=== PATIENT | female | born 1965 | race Caucasian/White ===

== ENCOUNTER → 2016-08-12 | Outpatient (CLI) | payer BC ==
--- NOTE | 2016-08-12 14:45 | DIAGNOSTIC IMAGING REPORT ---
RIGHT INJ MAJOR JN SHLDR,HIP,KNEE CLINICAL HISTORY: DJD RIGHT HIP Rightpain COMPARISON STUDY: None FLUOROSCOPY TIME: 12 seconds. FINDINGS: Following description of procedure and informed consent, fluoroscopic assistance was provided to place a 25-gauge needle to the right hip joint space. Test injection confirmed its intra-articular location. This is followed by a combination of Xylocaine, bupivacaine, and betamethasone. There were no complications. IMPRESSION: Successful therapeutic right hip injection Electronically signed by: Yordy Leal M.D. 08/12/2016 2:43 PM Dictated Date/Time: 08/12/2016 2:42 PM
== END | disposition home or self-care (01) ==
LOC: C.RADBC 13:57
PROVIDERS: ATTEND Orthopaedic Surgery
DX: M16.11 Unilateral primary osteoarthritis, right hip (principal)

== ENCOUNTER → 2016-11-20 | Outpatient (CLI) | payer BC ==
--- NOTE | 2016-11-20 14:15 | Discharge Instructions ---
Discharge Instructions Procedure Procedure Date: Nov 20, 2016. Reason for visit: Rt Hip Djd,Pain. Discharge Discharge Date: Nov 20, 2016. Discharge Diagnosis: Same Instructions Activity Recommendations: No limitations Return to School/Work: no limitations Recommended Home Diet: Resume Previous Diet Provider Instructions: ACTIVITY RECOMMENDATIONS: * Rest today. * Resume regular activity in one day. MEDICATIONS: * May take Tylenol or Ibuprofen as needed for pain. DIET: * Resume previous diet. SPECIAL CARE INSTRUCTIONS: Call your doctor if: * Temperature above 101 degrees F. * Pain not relieved by pain medicine ordered. * Increased drainage or redness from incision. * Notify your doctor with any questions or concerns. Call your doctor or go to the nearest Emergency Department if you experience: * Increased chest pain or shortness of breath. FOLLOW UP VISIT: Follow-up with Referring Physician as scheduled. Annette Bruce Recommendations: Call your doctor if: * Temperature above 101 degrees * Pain not relieved by pain medicine ordered * There is increased drainage or redness from any incision * You have any unanswered questions or concerns. Your Doctors Instructions noted above were prepared by provider Kingsley Carrasquillo. Patient Signature Section: Patient Instructions Signature Page Lisbethyuli Cuevas Patient (or Guardian) Signature/Date: I have read and understand the instructions given to me by my caregivers. Caregiver/RN/Doctor Signature/Date: The above-named patient and/or guardian has received patient instructions on this date. + Original Patient Signature Page (only) stays with chart. Please make copy for patient.
--- NOTE | 2016-11-20 15:33 | DIAGNOSTIC IMAGING REPORT ---
RIGHT INJ MAJOR JNT SHLDR,HIP,KNEE FLUOROSCOPY TIME: 24 seconds HISTORY: Right hip pain.. PROCEDURE: After obtaining written informed consent, the patient was placed supine on the fluoroscopy table. A suitable site for needle insertion was marked using fluoroscopic guidance. The right hip was prepped and draped in the usual sterile fashion. 1% lidocaine was used for skin, subcutaneous and deep soft tissue anesthesia. Under intermittent fluoroscopic guidance, a 22 gauge x 3.5 inch spinal needle was inserted into the right femoral acetabular joint. 2 cc of Optiray 300 was injected to confirm the intra-articular location. This is followed by a mixture of 5cc of 0.5% bupivacaine and 2 cc of betamethasone at the request of the referring physician. The needle was then removed. There were no apparent complications. IMPRESSION: Fluoroscopic-guided right hip steroid injection without immediate complication. The above report was generated using voice recognition software. It may contain grammatical, syntax or spelling errors. Electronically signed by: Jorge Carrasquillo M.D. 11/20/2016 3:31 PM Dictated Date/Time: 11/20/2016 3:30 PM
== END | disposition home or self-care (01) ==
LOC: C.RADBC 13:30
PROVIDERS: ATTEND Orthopaedic Surgery Orthopaedic Surgery of the Spine
DX: M16.11 Unilateral primary osteoarthritis, right hip (principal); M25.551 Pain in right hip

== ENCOUNTER 2019-10-07 08:10 | Observation (INO) ==
--- NOTE | 2019-09-23 15:44 | PAT Medication Instructions ---
Medication Instructions Date of Service September 23, 2019 Home Medications Medication Instructions Recorded nabumetone 500 mg tablet 500 mg PO BID #60 tab 11/26/18 solifenacin 10 mg tablet 10 mg PO DAILY #90 tab 04/13/19 levothyroxine 25 mcg tablet 25 mcg PO DAILY #90 tab 04/29/19 lisinopril 5 mg tablet 5 mg PO DAILY #90 tab 05/04/19 meloxicam 15 mg tablet 15 mg PO DAILY #90 tab 05/04/19 diclofenac sodium 75 mg 75 mg PO BID #60 tab 08/09/19 tablet,delayed release tramadol 50 mg tablet 50 mg PO Q8H PRN #30 tab 08/09/19 nabumetone 500 mg tablet 500 mg PO BID solifenacin 10 mg tablet 10 mg PO DAILY levothyroxine 25 mcg tablet 25 mcg PO DAILY lisinopril 5 mg tablet 5 mg PO DAILY meloxicam 15 mg tablet 15 mg PO DAILY diclofenac sodium 75 mg tablet,delayed release 75 mg PO BID tramadol 50 mg tablet 50 mg PO Q8H PRN ASK your surgeon for instructions nabumetone 500 mg tablet 500 mg PO BID meloxicam 15 mg tablet 15 mg PO DAILY diclofenac sodium 75 mg tablet,delayed release 75 mg PO BID DO NOT take the morning of surgery solifenacin 10 mg tablet 10 mg PO DAILY lisinopril 5 mg tablet 5 mg PO DAILY Take morning of surgery With a small sip of water, OTHERWISE NOTHING TO EAT OR DRINK AFTER MIDNIGHT: levothyroxine 25 mcg tablet 25 mcg PO DAILY tramadol 50 mg tablet 50 mg PO Q8H PRN (okay to take up to 4 hours prior to surgery if needed) Take evening before surgery tramadol 50 mg tablet 50 mg PO Q8H PRN (if needed) Other Notes If you have any questions please call us at [phone] or [phone] or [phone] or [phone]
--- NOTE | 2019-09-26 14:31 | Anesthesiology Consultation ---
Date of Service September 26, 2019 Assessment & Plan (1) Encounter for pre-operative examination: COVID Status: As of 09/25 assessment, patient denies travel to endemic area, known exposure/sick contacts, or symptoms of COVID19. Patient instructed to follow strict social distancing guidelines, wear a mask in public and avoid travel for 14 days prior to surgery. Preoperative COVID19 testing to be completed prior to surgery. Patient made aware to self-isolate as much as possible between COVID testing and surgery. *Possible difficult intubation 2/2 limited jaw ROM/TMJ. Patient aware plan for SAB. Chart Review Chart Review: Acceptable Risk for Surgery and Patient seen in Pre Admission Testing Teaching & Discussion Instructed NPO after midnight before surgery, except medications with 15 cc of water. Medication instructions provided according to the PAT guidelines. History Surgery Operation Date: 10/07/19 08:50 Proposed Procedures p Right Anterior Total Hip Arthroplasty - Jaocb Arora, Height/Weight Height: 5 ft 6 in Weight: 102.4 kg Allergies Allergy/AdvReac Type Severity Reaction Status Date / Time No Known Allergies Allergy Verified 09/19/19 15:33 Medications Home Medications Medication Instructions Recorded Confirmed Last Taken nabumetone 500 mg tablet 500 mg PO BID #60 tab 11/26/18 09/19/19 Unknown solifenacin 10 mg tablet 10 mg PO DAILY #90 tab 04/13/19 09/19/19 Unknown levothyroxine 25 mcg tablet 25 mcg PO DAILY #90 tab 04/29/19 09/19/19 Unknown lisinopril 5 mg tablet 5 mg PO DAILY #90 tab 05/04/19 09/19/19 Unknown meloxicam 15 mg tablet 15 mg PO DAILY #90 tab 05/04/19 09/19/19 Unknown diclofenac sodium 75 mg 75 mg PO BID #60 tab 08/09/19 09/19/19 Unknown tablet,delayed release tramadol 50 mg tablet 50 mg PO Q8H PRN #30 tab 08/09/19 09/19/19 Unknown Past Medical History Medical History Asthma no inhaler -> well controlled, occasional mild dry cough in allergy season. Cough also triggered by smells like cleaning products. Hypertension Hypothyroidism Obesity Osteoarthritis Prolapsed bladder following with PCP currently. Exercise / Class Metabolic Activity II 4-5 Yardwork/Stairs/Walk up hill (Denies CP or SOB with 1 FOS) Past Family History Family History Father Diabetes Colorectal cancer Hypertension Mother Hypertension Other No family history of adverse response to anesthesia Past Surgical History Surgical History (Updated 09/27/19 @ 15:36 by [facility]) History of bilateral tubal ligation History of cholecystectomy History of colonoscopy History of dilatation and curettage History of tonsillectomy Past Anesthesia History No Hx of Anesthesia Complications (other than PONV/MAYES) and No Family Hx of Anesthesia Complications History of PONV No Hx of Motion Sickness and History of PONV (with tubal ligation, also headache) Social History Smoking Status: Never smoker Do You Dip or Chew Tobacco: No Hx Alcohol Use: No Hx Substance Use: Yes Review of Systems Pt denies any recent chest pain, shortness of breath, palpitations, fever or URI. +chronic dry cough with asthma triggers Physical Exam Vital Signs BP: 144/91 (pt follows with PCP for HTN) P: 63bpm SPO2: 97% RA T: 98.3 F R: 16 ENMT Mouth: + TMJ abnormality and + restricted motion of mouth (2/2 TMJ); no dental restorations, no chipped teeth and no loose teeth Thyromental Distance: > or= 3.5 Finger Breadths (3.5) Mallampati Class: IV (difficult to view 2/2 TMJ/jaw extenstion restriction) Neck normal visual inspection; neck extension not limited Respiratory normal respiratory effort Auscultation: lungs clear to auscultation bilaterally Cardiovascular Rate/Rhythm: regular rate and regular rhythm Heart Sounds: no murmur Extremities: no edema Testing Laboratory Results 09/26/19 14:42 09/26/19 14:42 PT 10.5 Seconds (9.0-12.0) 09/26/19 14:42 INR 1.0 (0.9-1.1) 09/26/19 14:42 APTT 27.0 Seconds (21.0-31.0) 09/26/19 14:42 Blood Type A Positive 09/26/19 14:42 Antibody Screen NEGATIVE 09/26/19 14:42 Electrocardiogram Date: 09/26/19 Findings: + SB @ (59bpm) Chest X-Ray Date: 09/26/19 Findings: + NAD
--- NOTE | 2019-09-26 14:56 | Electrocardiogram Report ---
Test Reason : Blood Pressure : / mmHG Vent. Rate : 059 BPM Atrial Rate : 059 BPM P-R Int : 140 ms QRS Dur : 076 ms QT Int : 442 ms P-R-T Axes : 035 038 016 degrees QTc Int : 437 ms Sinus bradycardia Otherwise normal ECG No previous ECGs available Confirmed by Chas Nava ([id number]) on 09/26/2019 2:55:47 PM Referred By: Jacob Arora Confirmed By:Chas Nava
--- NOTE | 2019-09-26 15:19 | XRay Report ---
XR chest Pre-admission PA/Lat HISTORY: Preop. COMPARISON: None. FINDINGS: The lungs are clear. Cardiac silhouette is normal in size. No pleural effusions. No pneumot horax. IMPRESSION: No acute process. ACT 112: Negative or not required by law. Electronically signed by: Jono Han M.D. 09/26/2019 3:18 PM
[2019-09-26 15:56] LABS: Basophils # (auto) 0.05 K/uL (0-0.2); Basophils % (auto) 0.5 %; Eosinophils # (auto) 0.16 K/uL (0-0.5); Eosinophils % (auto) 1.5 %; Hematocrit (blood only) 39.5 % (37-47); Immature Granulocytes # (auto) 0.04 K/uL (0.00-0.02); Immature Granulocytes % (auto) 0.4 %; Lymphocytes # (auto) 3.75 K/uL (1.2-3.4); Lymphocytes % (auto) 34.6 %; Mean Corpuscular Hemoglobin 30.8 pg (25-34); Mean Corpuscular Hgb Conc 32.9 g/dL (32-36); Mean Corpuscular Volume 93.6 fL (80-100); Mean Platelet Volume 10.8 fL (7.4-10.4); Monocytes # (auto) 1.02 K/uL (0.11-0.59); Monocytes % (auto) 9.4 %; Neutrophils # (auto) 5.81 K/uL (1.4-6.5); Neutrophils % (auto) 53.6 %; Platelet Count 215 K/uL (130-400); RDW Coefficient of Variation 13.4 % (11.5-14.5); RDW Standard Deviation 45.6 fL (36.4-46.3); Red Blood Count 4.22 M/uL (4.2-5.4); White Blood Count 10.83 K/uL (4.8-10.8)
[2019-09-26 16:02] LABS: BUN Creatinine Ratio 15.2 (10-20); Calcium 9.2 mg/dl (8.5-10.1); Creatinine Clr Calc Pharmacy 84.3 ml/min; Est GFR (African American) 82.8; Est GFR (Non-African American) 71.5; Potassium 4.3 mmol/L (3.5-5.1)
[2019-09-26 16:12] LABS: Prothrombin Time 10.5 Seconds (9.0-12.0)
--- NOTE | 2019-10-06 06:27 | History & Physical Report ---
Date of Service October 06, 2019 Assessment & Plan (1) Osteoarthritis of both hips: We will proceed with a right anterior total hip arthroplasty. Postoperatively she will be started on aspirin for DVT prophylaxis and kept overnight in the hospital for postoperative medical management. Lisbeth is a low risk for joint placement surgery without any major comorbidities. Present on Admission?: Yes History of Present Illness Chief Complaint: Primary osteoarthritis of the right hip Primary Care Provider: Kwadwo Zavaleta DO Lisbeth is a pleasant 54-year-old female who is been doing with chronic increasing right hip and groin pain. X-rays and clinical examination have been diagnostic for advanced osteoarthritis of the right hip. After failing conservative treatment, she has elected to proceed with a right anterior total hip arthroplasty. Allergies Allergy/AdvReac Type Severity Reaction Status Date / Time No Known Allergies Allergy Verified 09/19/19 15:33 Home Medications Home Medications Medication Instructions Recorded Confirmed Type nabumetone 500 mg tablet 500 mg PO BID #60 tab 11/26/18 09/19/19 Rx solifenacin 10 mg tablet 10 mg PO DAILY #90 tab 04/13/19 09/19/19 Rx levothyroxine 25 mcg tablet 25 mcg PO DAILY #90 tab 04/29/19 09/19/19 Rx lisinopril 5 mg tablet 5 mg PO DAILY #90 tab 05/04/19 09/19/19 Rx meloxicam 15 mg tablet 15 mg PO DAILY #90 tab 05/04/19 09/19/19 Rx diclofenac sodium 75 mg 75 mg PO BID #60 tab 08/09/19 09/19/19 Rx tablet,delayed release tramadol 50 mg tablet 50 mg PO Q8H PRN #30 tab 08/09/19 09/19/19 Rx Past Med/Surg History Medical History Asthma no inhaler -> well controlled, occasional mild dry cough in allergy season. Cough also triggered by smells like cleaning products. Hypertension Hypothyroidism Obesity Osteoarthritis Prolapsed bladder following with PCP currently. Surgical History History of bilateral tubal ligation History of cholecystectomy History of colonoscopy History of dilatation and curettage History of tonsillectomy Family History Father Diabetes Colorectal cancer Hypertension Mother Hypertension Other No family history of adverse response to anesthesia Social History Preferred Language: Armenian Communication Ability: Effective Visual Impairment: No Limitations Hearing Ability: Normal Pain Management Nurse Required: No Beliefs That Will Affect Care: None marital status: Current Living Situation: Spouse current occupational status: employed current occupation: [employer] Feels Safe at Home: Yes Smoking Status: Never smoker Second Hand Exposure: No ; Hx Alcohol Use: No Hx Substance Use: Yes substance use type: painkillers and prescription drug Childhood Exposure to Second-Hand Smoke: No caffeine: Yes during the past year weight has: decreased > 10 lbs Dental Care, Regularly: Yes Physical Activity Frequency: Does not Exercise Seatbelt Use: never Sunscreen Use: Yes Review of Systems Review of Systems: All systems reviewed & are unremarkable except as noted in HPI & below Physical Exam Constitutional: WD/WN, vitals as above Eyes: PERRL, conjunctivae normal, anicteric sclerae ENMT: external ear and nose normal, oropharynx normal Neck: trachea midline, no thyromegaly Respiratory: normal respiratory effort Cardiovascular: RRR, no murmur, no edema Gastrointestinal (Abdomen): normal bowel sounds, soft, nontender, no hepatosplenomegaly Musculoskeletal: Physical examination of the right hip reveals decreased range of motion with flexion, internal and external rotation. There is significant groin pain with forced internal rotation of the hip his leg lengths are essentially equal. Psychiatric: A+Ox3, euthymic affect Results & Data Results & Data ([facility]) Diagnostic Findings Radiographs of the right hip and pelvis demonstrate advanced osteoarthritis with joint space narrowing osteophyte formation and [id number] articulation. PG Care Time/CCT Total # of Minutes Spent Total Time Spent with Patient: Total time spent is greater than 50% in coordination of care (as documented) at patient's floor/unit and/or counseling patient: Coding Level of Care Code 57155 Initial Inpt Care Lvl 3 Diagnoses Osteoarthritis of both hips M16.0
[~2019-10-07 08:10] MED LIST: ACETAMINOPHEN 500 MG TAB PO SCH; BUPIVACAINE 0.5 % 5 MG/1 ML PF 10ML VIAL ONE; CEFAZOLIN 2000MG 2,000 MG/15 ML SYR IV SCH; FAMOTIDINE 20 MG TAB PO SCH; GABAPENTIN 600 MG DOSE PO SCH; LR 500ML BOLUS, THEN 15ML/HR IV SCH; LR 60ML/HR IV SCH; ROPIVACAINE 0.5% HCL/PF 150 MG, BUPIVACAINE 0.5% MPF 30 ML, EPINEPHrine 30MG/30ML (OR U... INSTIL SCH; TRANEXAMIC ACID 1,000 MG **IV Intra-op IV SCH; TRANEXAMIC ACID 1,000 MG **IV Pre-op IV SCH; dexAMETHasone 4 MG TAB PO SCH
--- NOTE | 2019-10-07 08:23 | History & Physical Bridge Note ---
Date of Service October 07, 2019 History & Physical Bridge Note I have examined the patient, reviewed the History & Physical and in the interval since the performance of the History & Physical I have noted the following changes of clinical significance: no changes noted
[2019-10-07] MEDS ORDERED: fentaNYL citrate 100 MCG/2 ML VIAL ONE (09:25)
[2019-10-07] MEDS ORDERED: PROPOFOL IV EMULSION 10 MG/ML 20 ML VIAL IV ONE (09:25)
[2019-10-07] MEDS ORDERED: LIDOCAINE HCL 2% 2 ML VIAL/AMP(20MG/ML) INFIL ONE (09:25)
[2019-10-07] MEDS ORDERED: MIDAZOLAM HCL 1 MG/ML 2ML VIAL ONE ×2 (09:25→09:26)
[2019-10-07] MEDS ORDERED: ORTHO JOINT ANESTHETIC ONE (09:39)
[2019-10-07] MEDS ORDERED: ATROPINE SULFATE 0.1 MG/ML 10ML SYR IV PRN (09:45)
[2019-10-07] MEDS ORDERED: ONDANSETRON INJ 2 MG/ML 2 ML VIAL IV PRN (09:45)
[2019-10-07] MEDS ORDERED: fentaNYL citrate 100 MCG/2 ML VIAL IV PRN (09:45)
[2019-10-07] MEDS ORDERED: ePHEDrine sulfate 50 MG/ML AMP IV PRN (09:45)
--- NOTE | 2019-10-07 11:42 | Operative Report ---
PG Post Operative Report Pre & Post Diagnosis Operation Date: 10/07/19 10:20 Pre-Op Diagnosis: Right Hip Degenerative Joint Disease Post-Op Diagnosis: Right Hip Degenerative Joint Disease I identified the patient and participated in the time-out.: Yes Procedure Operation Date: 10/07/19 10:20 Actual Procedures p Right Anterior Total Hip Arthroplasty(Right) - Jacob Arora DO Surgeon Jacob Arora DO Kennel Operator Jacob Aldrich PAC Estimated Blood Loss 250 Findings Consistent with Post-Op Diagnosis Specimens Right femoral head Complications none Disposition Disposition: Recovery Room Indications Lisbeth is a pleasant 54-year-old female who presented my office with complaints of chronic increasing right hip and groin pain. X-rays and clinical examination were diagnostic for advanced osteoarthritis of the right hip. After failing conservative treatment, she elected to proceed with a right anterior total hip arthroplasty. Description of Procedure Implants used I used a Biomet Taperloc total hip arthroplasty system with a size 7 standard offset micro Taperloc stem, a 52 mm G7 cup with a 25mm screw, an E1 polyethylene liner, a 36 mm ceramic head with a 0 neck. Lisbeth arrived at the hospital for the above procedure. She was seen in the preoperative holding area and the operative extremity was identified and signed. She was given a spinal anesthetic, a preoperative antibiotic, and TXA. She was then taken back to the operating room and laid on the table in the supine position. She was given basic sedation. The operative leg was secured to a Puristst leg positioner. The hip was then prepped and draped in sterile fashion. A timeout was done and the patient and the operative extremity was properly identified. An anterior approach was used. Dissection was taken down through the fascia and the tensor muscle belly was retracted laterally and the rectus was retracted medially. The circumflex vessels were identified and ligated. The capsule was then incised and tagged for later repair. The femoral neck was then cut and the femoral head was removed. The acetabulum was exposed. Time was spent doing a complete circumferential labral release. Sequential reaming of the acetabulum up to a size 51 reamer was done. Final reamings were done under fluoroscopy to ensure appropriate version. A Biomet 52 mm G7 cup was then impacted into place. A single 25 mm screw was placed. The E1 polyethylene liner was then snapped into place. Surrounding soft tissues were then injected with 100 cc of an orthopedic pain control cocktail. The proximal femur was then exposed. Sequential broaching up to a size 7 broach was done. Off that broach a size 36 head with a 0 neck was trialed. The hip was reduced and fluoroscopic images showed anatomic alignment of the implants in acceptable length. The broach was removed. The final size 7 standard offset micro Taperloc stem was then impacted into place. A ceramic 36 mm head with a 0 neck was then impacted onto the stem and the hip was reduced. Final fluoroscopic images showed anatomic alignment of the hip. The capsule was then closed with #1 Vicryl suture. A dilute betadyne lavage was then done for 3 minutes. The joint was then irrigated with normal saline solution. The fascia was closed with #1 PDS suture. Skin was closed with 2-0 Vicryl, óscar, and a Silverlon dressing. She was then transferred to a hospital bed and taken to the post anesthesia care unit in stable condition. She tolerated the procedure well. Jacob Aldrich PA-C, was present for the entire procedure. He was critical for patient positioning, prepping, draping, retraction exposure, wound closure and application of sterile dressing. I attest to the content of the Intraoperative Record and any orders documented therein. Any exceptions are noted below.
--- NOTE | 2019-10-07 12:52 | Anesthesiology Progress Note ---
Date of Service October 07, 2019 Anesthesia Post Procedure Vital Signs Vital Signs: Temp Pulse Resp BP Pulse Ox 10/07/19 12:40 72 18 111/76 95 10/07/19 12:30 65 16 126/74 100 10/07/19 12:20 36.3 C L 73 16 118/75 97 10/07/19 08:57 36.9 C 58 L 18 154/99 H 98 Pain Intensity Right Hip: Pain Intensity: 0 Transfer of Care Handoff Completed per policy Notes Mental Status: alert / awake / arousable Patient Amnestic to Procedure: Yes Nausea / Vomiting: adequately controlled Pain: adequately controlled Airway Patency, RR, SpO2: stable & adequate BP & HR: stable & adequate Hydration State: stable & adequate Neuraxial Anesthesia: was administered and sensory block is resolving Anesthetic Complications: no major complications apparent and Pt Satisfied with anesthetic care
--- NOTE | 2019-10-07 12:52 | XRay Report ---
XR hip 1V RT w pelvis CLINICAL HISTORY: IN PACU - A/P PELVIS and LATERAL HIP hip replacement COMPARISON: None. DISCUSSION: Anatomic alignment post total right hip replacement. Good contact between prosthetic and underlying bone. No evidence for acetabular protrusion. Note is made of significant degenerative changes left hip. Expected postoperative soft tissue change IMPRESSION: Anatomic alignment post total right hip arthroplasty. ACT 112: Negative or not required by law. The above report was generated using voice recognition software. It may contain grammatical, syntax or spelling errors. Electronically signed by: Yordy Leal M.D. 10/07/2019 12:50 PM
[2019-10-07] MEDS ORDERED: HYDROmorphone INJ 0.5 MG/0.5 ML SYR IV PRN (13:45)
--- NOTE | 2019-10-07 14:04 | Fluoroscopy Report ---
INTRAOPERATIVE RADIOGRAPHS CLINICAL HISTORY: Right hip arthroplasty. Fluoroscopy time: 26 seconds. FINDINGS: 2 spot fluoroscopic views of the right hip are presented. The initial image shows surgical absence of the femoral head with the acetabular cup in place. The second image shows the arthroplasty in near anatomic alignment. There is no evidence of fracture on these fluoroscopic images. IMPRESSION: Intraoperative images from a right hip arthroplasty procedure as above. Electronically signed by: Eriberto Doyle M.D. 10/07/2019 2:03 PM
[2019-10-07] MEDS: ACETAMINOPHEN 500 MG TAB PO SCH ×2 (14:31→21:22)
[2019-10-07] MEDS: KETOROLAC 30 MG/ML VIAL IV SCH ×2 (14:31→20:36)
[2019-10-07] MEDS ORDERED: OXYCODONE HCL IR 5 MG TAB (IMMEDIATE RELEASE) PO PRN (15:48)
[2019-10-07] MEDS: ASPIRIN 81 MG ECTAB PO SCH (20:36)
[2019-10-07] MEDS ORDERED: OXYCODONE HCL 10 MG TABCR (OXYCONTIN) PO SCH (21:00)
[2019-10-07] MEDS: CEFAZOLIN 2000MG 2,000 MG/15 ML SYR IV SCH (21:18)
[2019-10-08] MEDS: KETOROLAC 30 MG/ML VIAL IV SCH ×2 (02:56→08:55)
[2019-10-08] MEDS: CEFAZOLIN 2000MG 2,000 MG/15 ML SYR IV SCH (04:01)
[2019-10-08] MEDS: ACETAMINOPHEN 500 MG TAB PO SCH (05:48)
[2019-10-08 06:17] LABS: Basophils # (auto) 0.01 K/uL (0-0.2); Basophils % (auto) 0.1 %; Hematocrit (blood only) 36.6 % (37-47); Hemoglobin 12.2 g/dL (12.0-16.0); Immature Granulocytes # (auto) 0.08 K/uL (0.00-0.02); Immature Granulocytes % (auto) 0.4 %; Lymphocytes # (auto) 2.15 K/uL (1.2-3.4); Lymphocytes % (auto) 11.8 %; Mean Corpuscular Hemoglobin 30.4 pg (25-34); Mean Corpuscular Hgb Conc 33.3 g/dL (32-36); Mean Corpuscular Volume 91.3 fL (80-100); Mean Platelet Volume 10.6 fL (7.4-10.4); Monocytes # (auto) 1.81 K/uL (0.11-0.59); Monocytes % (auto) 9.9 %; Neutrophils # (auto) 14.17 K/uL (1.4-6.5); Neutrophils % (auto) 77.8 %; Platelet Count 237 K/uL (130-400); RDW Coefficient of Variation 12.7 % (11.5-14.5); RDW Standard Deviation 42.7 fL (36.4-46.3); Red Blood Count 4.01 M/uL (4.2-5.4); White Blood Count 18.22 K/uL (4.8-10.8)
[2019-10-08 06:26] LABS: BUN Creatinine Ratio 19.9 (10-20); Calcium 8.6 mg/dl (8.5-10.1); Creatinine Clr Calc Pharmacy 86.8 ml/min; Est GFR (African American) 87.5; Est GFR (Non-African American) 75.5; Potassium 4.5 mmol/L (3.5-5.1)
[2019-10-08] MEDS ORDERED: LEVOTHYROXINE SODIUM 25 MCG TABLET PO SCH (06:30)
--- NOTE | 2019-10-08 07:17 | Discharge Summary ---
Date of Service October 08, 2019 Admission HPI Per Admitting Provider Lisbeth is a pleasant 54-year-old female who is been doing with chronic increasing right hip and groin pain. X-rays and clinical examination have been diagnostic for advanced osteoarthritis of the right hip. After failing conservative treatment, she has elected to proceed with a right anterior total hip arthroplasty. Principal Diagnosis Right total hip arthroplasty Discharge Data Allergies Allergy/AdvReac Type Severity Reaction Status Date / Time No Known Allergies Allergy Verified 10/07/19 08:53 Consultations 10/08/19 08:00 Consult Case Management - Discharge Planning Routine Procedures Performed Operation Date: 10/07/19 10:20 Actual Procedures p Right Anterior Total Hip Arthroplasty(Right) - Jacob Arora DO Ordered Studies 10/07/19 10:20 FL fluoroscopy <1hr Routine FL hip RT 1V Routine Hospital Course (1) History of right hip replacement: On October 07, 2019 Lisbeth arrived at [facility] and underwent a right anterior total hip arthroplasty without complication. She had a spinal anesthetic. Postoperatively she was started on aspirin for DVT prophylaxis and transferred to the general orthopedic floors. Her hospital course was uneventful. On postop day #1 her H&H was stable and her pain was well controlled. She was able to participate well with physical therapy doing ambulation and range of motion exercises. She was then discharged home. She wi ll follow-up with orthopedics in 2 weeks. Total Time Total Time Spent Total Time Spent (In Minutes): 20 Discharge Plan Discharge Items Patient Disposition: Home - Home Health Services Reason For Visit: Right Hip Degenerative Joint Disease Discharge Diagnosis: Right total hip arthroplasty Activity: As commented below Non-emergency contact: Surgeon Call non-emergency contact if: your wound has increased redness and your wound has increased drainage Follow-up/Referrals: Kwadwo Zavaleta DO [Primary Care Provider] - Diet: Regular Addtl Attending Provider Instructions: Activity and Therapy Recommendations: * If you are using [facility] then therapy will be provided at your home until they feel you have accomplished all of your goals. * If you are using [facility] then Physical Therapy will be provided until they feel you are ready to start Outpatient Physical Therapy. * If you are not using home therapy then Outpatient Physical Therapy should start about 3-5 days from your day of surgery. Therapy will last about 6-10 weeks * You were shown a series of exercises in the hospital. Do these exercises three times each day including the exercises you were shown in physical therapy. * Get up and walk several times each day.~ For the first four weeks, try not to stand or walk for more than one hour at a time. If you do stand or walk for more than one hour, you will not hurt anything, but your leg will likely swell.~~ * As you feel comfortable, you may change from the walker or crutches to a cane and~then to independent walking. Medications: * Narcotic You will likely be sent home from the hospital with a prescription for the narcotic pain medication that worked best throughout your stay. * Aspirin Most patients will be required to take Aspirin 81mg twice a day for 6 weeks after surgery. This is obtained [id number] and a prescription is not necessary. * Other medications may be prescribed for specific circumstances. If you have any questions, please call the office at . * Resume previous home medications unless otherwise instructed TEDs/Elastic Stockings: The white elastic stockings help limit swelling and prevent blood clots from forming in your legs. The more you wear them, the more they work. Wear them for six weeks. Dressing Care: Leave the Silverlon dressing in place for 7 days. After 7 days you may remove the dressing. Then, you may leave the óscar open to air or cover them with a dry dressing so they do not rub on your pants. The óscar will be removed at your 2 week follow-up appointment. Showering: You may shower immediately with the Silverlon dressing. Let the shower spray hit your opposite side and slowly pat the dressing dry. Do not soak the dressing. After the dressing is removed you may shower normally with the óscar exposed. Let soapy water run over the óscar and pat them dry. Things To Watch For: * Drainage from the incision site that occurs more than one week after your surgery. * Increased redness at the incision site. * Fever above 102 degrees Fahrenheit. * Unusual chest pain or shortness of breath. * Call [facility] at with any of the above problems Follow-Up Visit: Follow-up with Dr. Arora's PA (Jacob Aldrich) 2-3 weeks after your day of surgery. He will remove your óscar and answer any questions. If you have any additional questions or concerns, Dr Arora is usually in the office at the same time and will be available An appointment was probably scheduled when you signed-up for surgery in the office. If you have any questions call Office Instructions: More detailed instructions as well as Frequently Asked Questions were provided in a folder by our office when you signed-up for surgery. Please review these instructions when you get home. If you have any further questions or concerns, please feel free to call the office at [phone] Pending Studies at Discharge: No Stand-Alone Forms: My [facility] [employer], Smoking Cessation Medications and DC Order Prescriptions: New oxycodone 5 mg Tablet 5 mg PO Q6 PRN (Reason: pain) Qty: 30 RF: 0 Continued solifenacin [Vesicare] 10 mg tablet 10 mg PO DAILY Qty: 90 RF: 3 levothyroxine 25 mcg tablet 25 mcg PO DAILY Qty: 90 RF: 1 meloxicam [Mobic] 15 mg tablet 15 mg PO DAILY Qty: 90 RF: 3 lisinopril 5 mg tablet 5 mg PO DAILY Qty: 90 RF: 3 nabumetone 500 mg tablet 500 mg PO BID Qty: 60 RF: 0 diclofenac sodium 75 mg tablet,delayed release (DR/EC) 75 mg PO BID Qty: 60 RF: 2 tramadol 50 mg tablet 50 mg PO Q8H PRN (Reason: pain) Qty: 30 RF: 0 Discharge Orders: Discharge Order (Routine); Ordered 10/08/19 Ordered By: Jacob Arora Admission Data Admit Date/Time: 10/07/19 12:18 Attending Provider: Jacob Arora Admit Provider: Jacob Arora Primary Care Provider: Kwadwo Zavaleta Coding Level of Care Code D/C Day Management <30 mins Diagnoses History of right hip replacement Z96.641
--- NOTE | 2019-10-08 07:18 | Orthopedic Progress Note ---
Date of Service October 08, 2019 Assessment & Plan (1) History of right hip replacement: Overall she is doing very well. She is not having much pain in the right hip. She will be seen by physical therapy this morning for ambulation and range of motion exercises. She is on aspirin for DVT prophylaxis. She can be discharged home later today. She will follow-up with orthopedics in 2 weeks. Present on Admission?: Yes Subjective Lisbeth was seen and examined at bedside this morning. Overall she is doing very well. She not having much pain in the right hip. She has already been up and ambulating. She was able to get some sleep last night. She has no complaints. Physical Exam Musculoskeletal: On physical examination of the right hip, the dressing is clean and dry. Her leg lengths are equal. She has active dorsiflexion and plantarflexion of her right ankle. Results & Data ([facility]) Vital Signs (Past 12 Hours) Vital Signs Temp Pulse Resp BP Pulse Ox 10/08/19 06:32 36.6 C 71 18 133/80 98 10/08/19 04:01 36.5 C 61 16 131/80 94 10/07/19 23:05 36.6 C 64 14 128/80 96 10/07/19 20:00 36.8 C 77 16 118/76 96 Laboratory Results H & H 09/26/19 10/08/19 Range/Units 14:42 05:42 Hgb 13.0 12.2 (12.0-16.0) g/dL Hct 39.5 36.6 L (37-47) % Coagulation 09/26/19 Range/Units 14:42 INR 1.0 (0.9-1.1) Diagnostic Findings Postoperative x-rays of the right hip show the prosthesis to be in anatomic alignment without any evidence of fracture, dislocation, or loosening. PG Care Time/CCT Total # of Minutes Spent Total Time Spent with Patient: Total time spent is greater than 50% in coordination of care (as documented) at patient's floor/unit and/or counseling patient: Coding Level of Care Code None Diagnoses History of right hip replacement Z96.641
[2019-10-08] MEDS: ASPIRIN 81 MG ECTAB PO SCH (08:56)
[2019-10-08] MEDS ORDERED: lisinopriL 5 MG TAB PO SCH (09:00)
[2019-10-09] MEDS ORDERED: NABUMETONE 500 MG TABLET PO SCH (21:00)
== END 2019-10-08 10:41 | disposition home health service (06) ==
LOC: ASU 08:10 → 3E 08:10

== ENCOUNTER 2019-12-30 05:15 | Observation (INO) ==
--- NOTE | 2019-12-27 08:30 | Anesthesiology Consultation ---
Date of Service December 27, 2019 Assessment & Plan (1) Encounter for pre-operative examination: Chart Review Chart Review: Acceptable Risk for Surgery (pending preop Covid test results ) and Patient NOT seen in Pre Admission Testing Per nursing assessment 12/23/19, patient denies any recent travel. No known Covid positive contacts or Covid related symptoms. Covid test 12/26/19= pending Seen by PCP 11/17/19= seen for follow up. Tolerated right RICK. Aware that left RICK is coming up in the future. Referred to Dr Cruz for stress incontinence. Right RICK 10/07/19= Done under SAB at L3-4. One attempt. No anesthesia issues noted per record History Surgery Operation Date: 12/30/19 08:50 Proposed Procedures p Left Anterior Total Hip Arthroplasty - Jacob Arora DO Height/Weight Height: 5 ft 6 in Weight: 99.79 kg Allergies Allergy/AdvReac Type Severity Reaction Status Date / Time No Known Allergies Allergy Verified 12/23/19 10:45 Medications Home Medications Medication Instructions Recorded Confirmed Last Taken tramadol 50 mg tablet 50 mg PO Q6H PRN #30 tab 11/15/19 12/23/19 Unknown aspirin 81 mg tablet,delayed 162 mg PO DAILY tab 11/17/19 12/23/19 Unknown release levothyroxine 25 mcg PO QAM 12/23/19 12/23/19 Unknown lisinopril 5 mg PO QAM 12/23/19 12/23/19 Unknown solifenacin [Vesicare] 10 mg PO QAM 12/23/19 12/23/19 Unknown Past Medical History Medical History Asthma no inhaler -> well controlled, occasional mild dry cough in allergy season. Cough also triggered by smells like cleaning products. Hypertension Hypothyroidism Obesity Osteoarthritis Prolapsed bladder following with PCP currently. Past Family History Family History Father Diabetes Colorectal cancer Hypertension Mother Hypertension Sister Family history of liver cancer Other No family history of adverse response to anesthesia Past Surgical History Surgical History History of bilateral tubal ligation History of cholecystectomy History of colonoscopy History of dilatation and curettage History of right hip replacement (~09/2019) SEPTEMBER 2019 History of tonsillectomy Social History Smoking Status: Never smoker Do You Dip or Chew Tobacco: No Hx Alcohol Use: No Hx Substance Use: Yes substance use type: prescription drug Testing Laboratory Results Blood Type A Positive 12/26/19 10:15 Antibody Screen NEGATIVE 12/26/19 10:15 Laboratory Tests 12/26/19 12/26/19 12/26/19 10:14 10:14 10:15 WBC 8.51 Hgb 12.9 Hct 40.0 Plt Count 225 PT 10.2 INR 1.0 APTT 27.6 Sodium 141 Potassium 4.0 Chloride 108 H Carbon Dioxide 29 BUN 15 Creatinine 0.77 Glucose 97 TSH 3.060 Electrocardiogram Date: 09/26/19 Findings: + SB @ (59bpm) Chest X-Ray Date: 09/26/19 Findings: + NAD
--- NOTE | 2019-12-28 20:24 | History & Physical Report ---
Date of Service December 28, 2019 Assessment & Plan (1) Osteoarthritis of left hip: We will proceed with a left anterior total hip arthroplasty. Postoperatively she will be started on aspirin for DVT prophylaxis and kept overnight for postoperative medical management. She will talk to case management before deciding on therapy at discharge. Present on Admission?: Yes History of Present Illness Chief Complaint: Primary osteoarthritis of the left hip Primary Care Provider: Kwadwo Zavaleta DO Lisbeth is a pleasant 54-year-old female who is been dealing with chronic increasing left hip and groin pain. X-rays and clinical examination have been diagnostic for advanced osteoarthritis of the left hip. After failing conservative treatment, she has elected proceed with a left anterior total hip arthroplasty. She did undergo a right hip replacement about 3 months ago and has done very well with that. Allergies Allergy/AdvReac Type Severity Reaction Status Date / Time No Known Allergies Allergy Verified 12/23/19 10:45 Home Medications Home Medications Medication Instructions Recorded Confirmed Type tramadol 50 mg tablet 50 mg PO Q6H PRN #30 tab 11/15/19 12/23/19 Rx aspirin 81 mg tablet,delayed 162 mg PO DAILY tab 11/17/19 12/23/19 History release levothyroxine 25 mcg PO QAM 12/23/19 12/23/19 History lisinopril 5 mg PO QAM 12/23/19 12/23/19 History solifenacin [Vesicare] 10 mg PO QAM 12/23/19 12/23/19 History Past Med/Surg History Medical History Asthma no inhaler -> well controlled, occasional mild dry cough in allergy season. Cough also triggered by smells like cleaning products. Hypertension Hypothyroidism Obesity Osteoarthritis Prolapsed bladder following with PCP currently. Surgical History History of bilateral tubal ligation History of cholecystectomy History of colonoscopy History of dilatation and curettage History of right hip replacement (~09/2019) SEPTEMBER 2019 History of tonsillectomy Family History Father Diabetes Colorectal cancer Hypertension Mother Hypertension Sister Family history of liver cancer Other No family history of adverse response to anesthesia Social History Smoking Status: Never smoker Second Hand Exposure: No; Hx Alcohol Use: No Hx Substance Use: Yes Preferred Language: Spanish Communication Ability: Effective Visual Impairment: No Limitations Hearing Ability: Normal Supervisor Furnace Process Required: No Beliefs That Will Affect Care: None marital status: Current Living Situation: Spouse current occupational status: employed current occupation: [employer] Feels Safe at Home: Yes Childhood Exposure to Second-Hand Smoke: No caffeine: Yes during the past year weight has: decreased > 10 lbs Dental Care, Regularly: Yes Physical Activity Frequency: Does not Exercise Seatbelt Use: never Sunscreen Use: Yes Assistive Devices: Contacts Review of Systems Review of Systems: All systems reviewed & are unremarkable except as noted in HPI & below Physical Exam Constitutional: WD/WN, vitals as above Eyes: PERRL, conjunctivae normal, anicteric sclerae ENMT: external ear and nose normal, oropharynx normal Neck: trachea midline, no thyromegaly Respiratory: normal respiratory effort Cardiovascular: RRR, no murmur, no edema Gastrointestinal (Abdomen): normal bowel sounds, soft, nontender, no hepatosplenomegaly Musculoskeletal: Physical examination of the left hip reveals decreased range of motion with flexion, internal and external rotation. There is significant groin pain with forced internal rotation of the hip his leg lengths are essentially equal. Psychiatric: A+Ox3, euthymic affect Results & Data Results & Data ([facility]) Diagnostic Findings Radiographs of the left hip and pelvis demonstrate advanced osteoarthritis with joint space narrowing osteophyte formation and [id number] articulation. PG Care Time/CCT Total # of Minutes Spent Total Time Spent with Patient: Total time spent is greater than 50% in coordination of care (as documented) at patient's floor/unit and/or counseling patient: Coding Level of Care Code None Diagnoses Osteoarthritis of left hip M16.12
[2019-12-30] MEDS ORDERED: CEFAZOLIN 2000MG 2,000 MG/15 ML SYR IV SCH (06:00)
[2019-12-30] MEDS ORDERED: ACETAMINOPHEN 500 MG TAB PO SCH (06:00)
[2019-12-30] MEDS ORDERED: LR 500ML BOLUS, THEN 15ML/HR IV SCH (06:00)
[2019-12-30] MEDS ORDERED: FAMOTIDINE 20 MG TAB PO SCH (06:00)
[2019-12-30] MEDS ORDERED: ROPIVACAINE 0.5% HCL/PF 150 MG, BUPIVACAINE 0.5% MPF 30 ML, EPINEPHrine 30MG/30ML (OR U... INSTIL SCH (06:00)
[2019-12-30] MEDS ORDERED: TRANEXAMIC ACID 1,000 MG **IV Intra-op IV SCH (06:00)
[2019-12-30] MEDS ORDERED: dexAMETHasone 4 MG TAB PO SCH (06:00)
[2019-12-30] MEDS ORDERED: LR 60ML/HR IV SCH (06:00)
[2019-12-30] MEDS ORDERED: TRANEXAMIC ACID 1,000 MG **IV Pre-op IV SCH (06:00)
[2019-12-30] MEDS ORDERED: GABAPENTIN 600 MG DOSE PO SCH (06:00)
[2019-12-30] MEDS ORDERED: BUPIVACAINE 0.5 % 5 MG/1 ML PF 10ML VIAL ONE (06:22)
[2019-12-30] MEDS ORDERED: ORTHO JOINT ANESTHETIC ONE (06:37)
[2019-12-30] MEDS ORDERED: fentaNYL citrate 100 MCG/2 ML VIAL ONE (06:37)
[2019-12-30] MEDS ORDERED: ONDANSETRON INJ 2 MG/ML 2 ML VIAL ONE (06:37)
[2019-12-30] MEDS ORDERED: MIDAZOLAM HCL 1 MG/ML 2ML VIAL ONE (06:37)
[2019-12-30] MEDS ORDERED: LIDOCAINE HCL 2% 2 ML VIAL/AMP(20MG/ML) INFIL ONE (06:37)
[2019-12-30] MEDS ORDERED: PROPOFOL IV EMULSION 10 MG/ML 20 ML VIAL IV ONE (06:37)
--- NOTE | 2019-12-30 06:46 | History & Physical Bridge Note ---
Date of Service December 30, 2019 History & Physical Bridge Note I have examined the patient, reviewed the History & Physical and in the interval since the performance of the History & Physical I have noted the following changes of clinical significance: no changes noted
[2019-12-30] MEDS ORDERED: ATROPINE SULFATE 0.1 MG/ML 10ML SYR IV PRN (07:04)
[2019-12-30] MEDS ORDERED: HYDROmorphone INJ 2 MG/ML SYR/VIAL IV PRN (07:04)
[2019-12-30] MEDS ORDERED: ONDANSETRON INJ 2 MG/ML 2 ML VIAL IV PRN ×2 (07:04→10:04)
[2019-12-30] MEDS ORDERED: fentaNYL citrate 100 MCG/2 ML VIAL IV PRN (07:04)
[2019-12-30] MEDS ORDERED: ePHEDrine sulfate 50 MG/ML AMP IV PRN (07:04)
--- NOTE | 2019-12-30 08:36 | Operative Report ---
PG Post Operative Report Pre & Post Diagnosis Operation Date: 12/30/19 07:00 Pre-Op Diagnosis: Left Hip Degenerative Joint Disease Post-Op Diagnosis: Left Hip Degenerative Joint Disease I identified the patient and participated in the time-out.: Yes Procedure Operation Date: 12/30/19 07:00 Actual Procedures p Left Anterior Total Hip Arthroplasty(Left) - Jacob Arora DO Surgeon Jacob Arora DO Cupola Tender Helper Jacob Aldrich PAC Estimated Blood Loss 250 Findings Consistent with Post-Op Diagnosis Specimens Left femoral head Complications none Disposition Disposition: Recovery Room Indications Lisbeth is a pleasant 54-year-old female who is been dealing with chronic increasing left hip pain. X-rays and clinical examination have been diagnostic for advanced osteoarthritis of the left hip. After failing conservative treatment, she elected to proceed with a left anterior total hip arthroplasty. I did a right anterior hip replacement on her 3 months ago and she has done well with that. Description of Procedure Implants used I used a Biomet Taperloc total hip arthroplasty system with a size 8 standard offset Taperloc stem, a 52 mm G7 cup, an E1 polyethylene liner, a 36 mm ceramic head with a +6 neck. Lisbeth arrived at the hospital for the above procedure. She was seen in the preoperative holding area and the operative extremity was identified and signed. She was given a spinal anesthetic, a preoperative antibiotic, and TXA. She was then taken back to the operating room and laid on the table in the supine position. She was given basic sedation. The operative leg was secured to a Puristst leg positioner. The hip was then prepped and draped in sterile fashion. A timeout was done and the patient and the operative extremity was properly identified. An anterior approach was used. Dissection was taken down through the fascia and the tensor muscle belly was retracted laterally and the rectus was retracted medially. The circumflex vessels were identified and ligated. The capsule was then incised and tagged for later repair. The femoral neck was then cut and the femoral head was removed. The acetabulum was exposed. Time was spent doing a complete circumferential labral release. Sequential reaming of the acetabulum up to a size 51 reamer was done. Final reamings were done under fluoroscopy to ensure appropriate version. A Biomet 52 mm G7 cup was then impacted into place. I was able to get a good press-fit into the screw was not necessary. The E1 polyethylene liner was then snapped into place. Surrounding soft tissues were then injected with 100 cc of an orthopedic pain control cocktail. The proximal femur was then exposed. Sequential broaching up to a size 8 broach was done. Off that broach a size 36 head with a +6 neck was trialed. The hip was reduced and fluoroscopic images showed anatomic alignment of the implants in acceptable length. The broach was removed. The final size 8 standard offset Taperloc stem was then impacted into place. A ceramic 36 mm head with a +6 neck was then impacted onto the stem and the hip was reduced. Final fluoroscopic images showed anatomic alignment of the hip. The capsule was then closed with #1 Vicryl suture. A dilute betadyne lavage was then done for 3 minutes. The joint was then irrigated with normal saline solution. The fascia was closed with #1 PDS suture. Skin was closed with 2-0 Vicryl, óscar, and a Silverlon dressing. She was then transferred to a hospital bed and taken to the post anesthesia care unit in stable condition. She tolerated the procedure well. Jacob Aldrich PA-C, was present for the entire procedure. He was critical for patient positioning, prepping, draping, retraction exposure, wound closure and application of sterile dressing. I attest to the content of the Intraoperative Record and any orders documented therein. Any exceptions are noted below.
--- NOTE | 2019-12-30 09:08 | Fluoroscopy Report ---
FL hip LT 1V CLINICAL HISTORY: Postop left hip prosthesis. COMPARISON STUDY: None. FLUOROSCOPY TIME: 35 seconds. FINDINGS: 2 fluoroscopic spot images of the left hip demonstrate a left total hip arthroplasty. The h ardware is intact. No fracture or dislocation. IMPRESSION: Fluoroscopy provided for left total arthroplasty. ACT 112: Negative or not required by law. Electronically signed by: Jono Han M.D. 12/30/2019 9:06 AM
[2019-12-30] MEDS ORDERED: NALOXONE HCL 0.4 MG/1 ML VIAL/CARP IV PRN (10:04)
[2019-12-30] MEDS ORDERED: MAGNESIUM HYDROXIDE SUSP 30 ML UDC PO PRN (10:04)
[2019-12-30] MEDS ORDERED: bisacodyL 10 MG SUPP PR PRN (10:04)
[2019-12-30] MEDS ORDERED: METOCLOPRAMIDE HCL INJ 5 MG/ML 2 ML VIAL IV PRN (10:04)
[2019-12-30] MEDS ORDERED: OXYCODONE HCL IR 5 MG TAB (IMMEDIATE RELEASE) PO PRN (10:04)
[2019-12-30] MEDS ORDERED: HYDROmorphone INJ 0.5 MG/0.5 ML SYR IV PRN (10:04)
--- NOTE | 2019-12-30 10:14 | XRay Report ---
AP PELVIS, CROSSTABLE LATERAL LEFT HIP History: Left total hip arthroplasty. Degenerative arthritis. Postop. FINDINGS: The patient is status post a left total hip arthroplasty. The hardware is intact. No fractu re or dislocation. Skin óscar are in place. Evidence for prior right total hip arthroplasty. IMPRESSION: Left total hip arthroplasty. No evidence for hardware complication. ACT 112: Negative or not required by law. Electronically signed by: Jono Han M.D. 12/30/2019 10:13 AM
[2019-12-30] MEDS: SODIUM CHLORIDE 0.9% 1000ML 1,000 ML IV SCH ×2 (10:16→21:00)
[2019-12-30] MEDS: KETOROLAC 30 MG/ML VIAL IV SCH ×3 (11:32→23:00)
[2019-12-30] MEDS: DOCUSATE SODIUM 100 MG CAP PO SCH ×2 (11:32→21:00)
[2019-12-30] MEDS: ASPIRIN 81 MG ECTAB PO SCH ×2 (11:32→21:00)
[2019-12-30] MEDS: MULTIVITAMIN TAB PO SCH (11:32)
[2019-12-30] MEDS: lisinopriL 5 MG TAB PO SCH (11:32)
--- NOTE | 2019-12-30 12:47 | Anesthesiology Progress Note ---
Date of Service December 30, 2019 Anesthesia Post Procedure Vital Signs Vital Signs: Temp Pulse Pulse Pulse Resp BP BP 12/30/19 12:03 78 14 137/82 12/30/19 11:13 68 16 132/79 12/30/19 10:35 69 16 130/83 12/30/19 10:05 36.3 C L 74 16 141/85 H 12/30/19 09:55 69 15 130/82 12/30/19 09:45 36.3 C L 80 15 124/88 12/30/19 09:35 62 15 124/65 12/30/19 09:25 70 18 107/81 12/30/19 09:15 77 15 137/79 12/30/19 09:05 73 14 137/86 12/30/19 08:58 36.3 C L 94 H 18 138/71 12/30/19 05:39 36.8 C 66 18 144/79 H Pulse Ox 12/30/19 12:03 96 12/30/19 11:13 95 12/30/19 10:35 96 12/30/19 10:05 97 12/30/19 09:55 95 12/30/19 09:45 97 12/30/19 09:35 94 12/30/19 09:25 96 12/30/19 09:15 95 12/30/19 09:05 94 12/30/19 08:58 95 12/30/19 05:39 96 Pain Intensity Left Hip: Pain Intensity: 0 Transfer of Care Handoff Completed per policy Notes Mental Status: alert / awake / arousable and participated in evaluation Patient Amnestic to Procedure: Yes Nausea / Vomiting: adequately controlled Pain: adequately controlled Airway Patency, RR, SpO2: stable & adequate BP & HR: stable & adequate Hydration State: stable & adequate Anesthetic Complications: no major complications apparent
[2019-12-30] MEDS: ACETAMINOPHEN 500 MG TAB PO SCH ×2 (13:02→23:00)
[2019-12-30] MEDS: CEFAZOLIN 2000MG 2,000 MG/15 ML SYR IV SCH ×2 (15:06→23:00)
[2019-12-30] MEDS ORDERED: SENNA 8.6 MG TAB PO SCH (21:00)
[2019-12-31] MEDS: ACETAMINOPHEN 500 MG TAB PO SCH (06:11)
[2019-12-31] MEDS: KETOROLAC 30 MG/ML VIAL IV SCH (06:11)
[2019-12-31 06:21] LABS: Hematocrit (blood only) 35.7 % (37-47); Hemoglobin 11.7 g/dL (12.0-16.0); Immature Granulocytes # (auto) 0.07 K/uL (0.00-0.02); Immature Granulocytes % (auto) 0.4 %; Lymphocytes # (auto) 2.18 K/uL (1.2-3.4); Lymphocytes % (auto) 11.4 %; Mean Corpuscular Hemoglobin 30.5 pg (25-34); Mean Corpuscular Hgb Conc 32.8 g/dL (32-36); Mean Corpuscular Volume 93.2 fL (80-100); Mean Platelet Volume 10.4 fL (7.4-10.4); Monocytes # (auto) 2.23 K/uL (0.11-0.59); Monocytes % (auto) 11.7 %; Neutrophils % (auto) 76.5 %; Platelet Count 223 K/uL (130-400); RDW Coefficient of Variation 13.1 % (11.5-14.5); Red Blood Count 3.83 M/uL (4.2-5.4); White Blood Count 19.08 K/uL (4.8-10.8)
[2019-12-31] MEDS ORDERED: LEVOTHYROXINE SODIUM 25 MCG TABLET PO SCH (06:30)
[2019-12-31 06:47] LABS: BUN Creatinine Ratio 19.9 (10-20); Calcium 8.6 mg/dl (8.5-10.1); Creatinine Clr Calc Pharmacy 84.5 ml/min; Est GFR (African American) 79.6; Est GFR (Non-African American) 68.7; Potassium 3.9 mmol/L (3.5-5.1)
--- NOTE | 2019-12-31 07:07 | Orthopedic Progress Note ---
Date of Service December 31, 2019 Assessment & Plan (1) Status post left hip replacement: Overall she is doing well. She is having much pain in the left hip. She will be seen by physical therapy this morning for ambulation and range of motion exercises. She is on aspirin for DVT prophylaxis. She can be discharged home later today. She will follow-up with orthopedics in 2 weeks. Present on Admission?: No Admission and Anticipated Discharge Date Admission Date: December 30, 2019 Lay Bob was seen and examined at bedside this morning. Overall she is doing very well. She is having much pain in the left hip. She has been up and ambulating to the bathroom. Her pain is controlled and she has no complaints. Physical Exam Musculoskeletal: On physical examination of the left hip, the Silverlon dressing is clean and dry. Her leg lengths are equal. She has active dorsiflexion and plantarflexion of her left ankle. Results & Data ([facility]) Vital Signs (Past 12 Hours) Vital Signs Temp Pulse Resp BP Pulse Ox 12/31/19 03:37 36.5 C 62 18 123/84 97 12/30/19 23:39 36.7 C 64 18 131/83 95 12/30/19 19:22 36.5 C 67 18 143/86 H 98 Laboratory Results H & H 12/31/19 Range/Units 06:00 Hgb 11.7 L (12.0-16.0) g/dL Hct 35.7 L (37-47) % Diagnostic Findings Postoperative x-rays of the left hip show the prosthesis to be in anatomic alignment without any evidence of fracture, dislocation, or loosening. PG Care Time/CCT Total # of Minutes Spent Total Time Spent with Patient: Total time spent is greater than 50% in coordination of care (as documented) at patient's floor/unit and/or counseling patient: Coding Level of Care Code None Diagnoses Status post left hip replacement Z96.642
--- NOTE | 2019-12-31 07:08 | Discharge Summary ---
Date of Service December 31, 2019 Admission HPI Per Admitting Provider Lisbeth is a pleasant 54-year-old female who is been dealing with chronic increasing left hip and groin pain. X-rays and clinical examination have been diagnostic for advanced osteoarthritis of the left hip. After failing conservative treatment, she has elected proceed with a left anterior total hip arthroplasty. She did undergo a right hip replacement about 3 months ago and has done very well with that. Principal Diagnosis Left total hip arthroplasty Discharge Data Allergies Allergy/AdvReac Type Severity Reaction Status Date / Time No Known Allergies Allergy Verified 12/30/19 06:39 Consultations 12/31/19 08:00 Consult Case Management - Discharge Planning Routine Procedures Performed Operation Date: 12/30/19 07:00 Actual Procedures p Left Anterior Total Hip Arthroplasty(Left) - Jacob Arora DO Ordered Studies 12/30/19 07:00 FL fluoroscopy <1hr Routine FL hip LT 1V Routine Hospital Course (1) Status post left hip replacement: On December 30, 2019 Lizet arrived at [facility] and underwent a left hip replacement without complication. She had a spinal anesthetic. Postoperatively she was started on aspirin for DVT prophylaxis and transferred to the general orthopedic floors. Her hospital course was uneventful. On postop day #1 her H&H was stable and her pain was well controlled. She was able to participate well with physical therapy doing ambulation and range of motion exercises. She was then discharged home. She will follow-up with orthopedics in 2 weeks. Total Time Total Time Spent Total Time Spent (In Minutes): 20 Discharge Plan Discharge Items Patient Disposition: Home - Home Health Services Reason For Visit: Left Hip Degenerative Joint Disease Discharge Diagnosis: Hip replacement Activity: As commented below Non-emergency contact: Surgeon Call non-emergency contact if: your wound has increased redness and your wound has increased drainage Follow-up/Referrals: Kwadwo Zavaleta DO [Primary Care Provider] - Diet: Regular Addtl Attending Provider Instructions: Activity and Therapy Recommendations: * If you are using [facility] then therapy will be provided at your home until they feel you have accomplished all of your goals. * If you are using [facility] then Physical Therapy will be provided until they feel you are ready to start Outpatient Physical Therapy. * If you are not using home therapy then Outpatient Physical Therapy should start about 3-5 days from your day of surgery. Therapy will last about 6-10 weeks * You were shown a series of exercises in the hospital. Do these exercises three times each day including the exercises you were shown in physical therapy. * Get up and walk several times each day.~ For the first four weeks, try not to stand or walk for more than one hour at a time. If you do stand or walk for more than one hour, you will not hurt anything, but your leg will likely swell.~~ * As you feel comfortable, you may change from the walker or crutches to a cane and~then to independent walking. Medications: * Narcotic You will likely be sent home from the hospital with a prescription for the narcotic pain medication that worked best throughout your stay. * Aspirin Most patients will be required to take Aspirin 81mg twice a day for 6 weeks after surgery. This is obtained [id number] and a prescription is not necessary. * Other medications may be prescribed for specific circumstances. If you have any questions, please call the office at . * Resume previous home medications unless otherwise instructed TEDs/Elastic Stockings: The white elastic stockings help limit swelling and prevent blood clots from forming in your legs. The more you wear them, the more they work. Wear them for six weeks. Dressing Care: Leave the Silverlon dressing in place for 7 days. After 7 days you may remove the dressing. If the incision is not draining then you may leave the óscar open to air. If there is a little bit of drainage or if the óscar are getting stuck on your clothing then cover the incision with a dry dressing. The óscar will be removed at your 2 week follow-up appointment. Showering: You may shower with the Silverlon dressing in place. Do not let the shower spray hit the dressing directly. Pat the Silverlon dressing dry. If the dressing becomes wet underneath, then simply remove the dressing. Keep the incision dry until you are 7 days out from the day of surgery. After 7 days you may remove the Silverlon dressing and shower with the óscar exposed. Let soapy water run over the óscar and pat them dry. Do not scrub or soak the incision. Things To Watch For: * Drainage from the incision site that occurs more than one week after your surgery. * Increased redness at the incision site. * Fever above 102 degrees Fahrenheit. * Unusual chest pain or shortness of breath. * Call [facility] at with any of the above problems Follow-Up Visit: Follow-up with Dr. Arora's PA (Jacob Aldrich) 2-3 weeks after your day of surgery. He will remove your óscar and answer any questions. If you have any additional questions or concerns, Dr Arora is usually in the office at the same time and will be available An appointment was probably scheduled when you signed-up for surgery in the office. If you have any questions call Office Instructions: More detailed instructions as well as Frequently Asked Questions were provided in a folder by our office when you signed-up for surgery. Please review these instructions when you get home. If you have any further questions or concerns, please feel free to call the office at [phone] Pending Studies at Discharge: No Stand-Alone Forms: My [facility], Smoking Cessation Medications and DC Order Prescriptions: New oxycodone 5 mg Tablet 5 mg PO Q4H PRN (Reason: pain) Qty: 30 RF: 0 Continued tramadol 50 mg tablet 50 mg PO Q6H PRN (Reason: pain) Qty: 30 RF: 0 levothyroxine 25 mcg tablet 25 mcg PO QAM RF: 0 lisinopril 5 mg tablet 5 mg PO QAM RF: 0 solifenacin [Vesicare] 10 mg tablet 10 mg PO QAM RF: 0 Changed aspirin 81 mg tablet,delayed release (DR/EC) 81 mg PO BID 42 Days Qty: 0 RF: 0 Discharge Orders: Discharge Order (Routine); Ordered 12/31/19 Ordered By: Jacob Arora Admission Data Admit Date/Time: 12/30/19 08:58 Attending Provider: Jacob Arora Admit Provider: Jacob Arora Primary Care Provider: Kwadwo Zavaleta Coding Level of Care Code D/C Day Management <30 mins Diagnoses Status post left hip replacement Z96.642
[2019-12-31] MEDS: ASPIRIN 81 MG ECTAB PO SCH (07:48)
[2019-12-31] MEDS: MULTIVITAMIN TAB PO SCH (07:48)
[2019-12-31] MEDS: DOCUSATE SODIUM 100 MG CAP PO SCH (07:48)
[2019-12-31] MEDS: lisinopriL 5 MG TAB PO SCH (07:48)
[2019-12-31] MEDS ORDERED: dexAMETHasone 4 MG TAB PO SCH (08:00)
== END 2019-12-31 11:45 | disposition home health service (06) ==
LOC: 3E 05:15 → ASU 05:15